=== PATIENT | female | born 1980 | race Caucasian/White ===

== ENCOUNTER 2016-10-13 15:44 | Emergency (ER) | payer MEDICAID ==
[2016-10-13 15:57] VITALS: BP 122/78
--- NOTE | 2016-10-13 19:13 | EDM.PDOC ---
ED HPI GENERAL MEDICAL PROBLEM - General Chief Complaint: Skin Complaint Stated Complaint: RIGHT FOOT Time Seen by Provider: 10/13/16 15:55 Source of Information: Reports: Patient History Limitations: Reports: No Limitations - History of Present Illness INITIAL COMMENTS - FREE TEXT/NARRATIVE: Pt. had sugery on foot at [facility] in [place] 2 weeks ago. Pt. states that plates and screws were placed in her foot. She states that she has noticed some clear drainage from the surgical incision and felt that it was foul smelling. She is concerned that the surgical site is infected. Onset: Today Location: Reports: Lower Extremity, Right Right Feet Pain Score (Numeric/FACES): 2 - Related Data Allergies Allergy/AdvReac Type Severity Reaction Status Date / Time codeine Allergy Headache Verified 10/13/16 15:52 hydrocodone Allergy Headache Verified 10/13/16 15:52 oxycodone Allergy Headache Verified 10/13/16 15:52 Home Meds: Home Meds Ibuprofen [Advil Liqui-Gels] 400 mg PO Q6H 10/13/16 [History] Past Medical History - Past Health History Medical/Surgical History: Denies Medical/Surgical History - Past Surgical History Musculoskeletal Surgical History: Reports: Other (See Below) Other Musculoskeletal Surgeries/Procedures:: Foot surgery 09/19/16 Social & Family History - Tobacco Use Smoking Status *Q: Former Smoker Used Tobacco, but Quit: No ED ROS GENERAL - Review of Systems Review Of Systems: ROS reveals no pertinent complaints other than HPI. Musculoskeletal: Reports: Other (clear drainage from surgical incisions on dorsum of foot.) ED EXAM, SKIN/RASH Exam: See Below Text/Narrative:: Normal post surgical changes noted. Not erythma or discharge noted. Exam Limited By: No Limitations Extremities: Other (Well-healing surgical incisions to dorsum of foot. Evidence of granulation tissue present at dorsum of foot. No discharge noted from the incisions. No erythema or other signs of infection noted.) Course - Vital Signs Last Recorded V/S: Last Vital Signs Temp 36.0 C 10/13/16 15:53 Pulse 75 10/13/16 15:53 Resp 16 10/13/16 15:53 BP 122/78 10/13/16 15:53 Pulse Ox 99 10/13/16 15:53 Departure - Departure Time of Disposition: 16:45 Disposition: Home, Self-Care 01 Clinical Impression: Wound drainage - Discharge Information Referrals: PCP,None [Primary Care Provider] - Forms: ED Department Discharge Additional Instructions: Keep appointment on Friday. Keep area dry and continue to elevate foot well above heart. Return to ER of follow-up in clinic if increased redness, swelling, or discharge from the area. - Assessment/Plan Assessment:: Post surgical drainage Plan: Pt. was reassured. There was no obvious signs of infection noted. Pt. was advised to return to ER if there is evidence of cellulitis, purulent discharge, fever or chills. Follow-up with surgeon as previously discussed.
== END 2016-10-13 16:45 | disposition home or self-care (01) ==
LOC: VM.ED 15:44
DX: Z48.89 Encounter for other specified surgical aftercare (principal); Z88.5 Allergy status to narcotic agent; Z88.8 Allergy status to other drugs, medicaments and biological substances; Z87.891 Personal history of nicotine dependence
CPT/HCPCS: 99282